=== PATIENT | female | born 1995 | race African-American/Black ===

== ENCOUNTER 2019-04-11 10:47 | Emergency (ER) | payer MEDICAID, OTHER ==
[~2019-04-11] VITALS: Ht 175.3 cm; Wt 90.0 kg
[~2019-04-11 10:47] MED LIST: TOPUD PO
[2019-04-11 12:44] LABS: CLARITY URINE CLOUDY (CLEAR); COLOR URINE YELLOW (YELLOW); KETONES URINE 1+ (NEGATIVE); LEUKOCYTE ESTERASE URINE 1+ (NEGATIVE); NITRITE URINE NEGATIVE (NEGATIVE); OCCULT BLOOD URINE NEGATIVE (NEGATIVE); PROTEIN URINE NEGATIVE (NEGATIVE); SPECIFIC GRAVITY URINE 1.016 (1.005-1.030); UROBILINOGEN URINE 0.2 E.U./dL (0.2-1.0)
[2019-04-11] MEDS ORDERED: METRONIDAZOLE 500MG TABLET PO SCH (13:15)
[2019-04-11] MEDS ORDERED: CEFTRIAXONE SODIUM 1 G/VIAL IM ONE (13:15)
[2019-04-11 13:22] VITALS: BP 118/69
[2019-04-14 04:07] LABS: NEISSERIA GONORRHOEAE NAA Negative (Negative)
== END 2019-04-11 13:34 | disposition home or self-care (01) ==
LOC: ER 10:47
DX: N39.0 Urinary tract infection, site not specified (principal); R10.2 Pelvic and perineal pain; F41.9 Anxiety disorder, unspecified; J45.909 Unspecified asthma, uncomplicated; F32.9 Major depressive disorder, single episode, unspecified; Z98.890 Other specified postprocedural states; Z88.0 Allergy status to penicillin
CPT/HCPCS: 81003; 81025; 87210; 87491; 87591; 96372; 99283; J0696